=== PATIENT | female | born 1980 | race Two or more races ===

== ENCOUNTER 2016-11-28 10:07 | Emergency (ER) | payer MEDICAID ==
[~2016-11-28] VITALS: Ht 167.6 cm; Wt 74.8 kg
[2016-11-28 10:17] VITALS: BP 144/71
[2016-11-28 10:40] LABS: Urine Bilirubin Negative (Negative); Urine Blood Negative /uL (Negative); Urine Color Yellow (Yellow); Urine Glucose Normal (Normal); Urine Ketone Negative (Negative); Urine Mucus FEW (None Seen); Urine Nitrite Negative (Negative); Urine RBC 1 /hpf (0 - 4); Urine Squamous Epithelial Cell MOD /hpf (<5); Urine Urobilinogen >12.0 mg/dL (Negative); Urine pH 6.5 (5.0-8.0)
== END 2016-11-28 12:28 | disposition home or self-care (01) ==
LOC: ER 10:07
DX: B86 Scabies (principal); N39.0 Urinary tract infection, site not specified
CPT/HCPCS: 80307; 81001

== ENCOUNTER 2017-01-05 10:03 | Emergency (ER) | payer MEDICAID ==
[~2017-01-05] VITALS: Ht 167.6 cm; Wt 63.5 kg
[2017-01-05 10:21] VITALS: BP 129/76
== END 2017-01-05 14:05 | disposition left against medical advice (07) ==
LOC: ER 10:03
DX: L25.9 Unspecified contact dermatitis, unspecified cause (principal); L50.9 Urticaria, unspecified

== ENCOUNTER 2017-03-24 13:15 | Emergency (ER) | payer MEDICAID ==
[~2017-03-24] VITALS: Ht 167.6 cm; Wt 59.0 kg
[2017-03-24 16:18] VITALS: BP 126/90
[2017-03-24 17:03] LABS: Urine Bilirubin Negative (Negative); Urine Blood Negative /uL (Negative); Urine Color Yellow (Yellow); Urine Glucose Normal (Normal); Urine Ketone 1+ (Negative); Urine Mucus FEW (None Seen); Urine Nitrite Negative (Negative); Urine RBC 1 /hpf (0 - 4); Urine Squamous Epithelial Cell FEW /hpf (<5); Urine Urobilinogen Normal (Negative); Urine pH 6.5 (5.0-8.0)
== END 2017-03-24 17:45 | disposition home or self-care (01) ==
LOC: ER 13:15 → EDSEX 13:15 → EDBD 13:15 → ER 17:44
DX: B75 Trichinellosis (principal)
CPT/HCPCS: 80307; 81001

== ENCOUNTER 2017-08-07 13:00 | Emergency (ER) | payer MEDICAID ==
[~2017-08-07] VITALS: Ht 167.6 cm; Wt 47.6 kg
[2017-08-07 13:12] VITALS: BP 135/86
[2017-08-07] MEDS ORDERED: SODIUM CHLORIDE 0.9% 500 ML IVB ONE (13:18)
[2017-08-07 13:50] LABS: Basophils # (auto) 0.1 uL; Basophils % (auto) 0.7 % (0.0-2.0); Eosinophils # (auto) 0 uL; Eosinophils % (auto) 0.3 % (0.0-7.0); Hematocrit 40.5 % (36.0-46.0); Hemoglobin 13.2 g/dL (12.2-16.2); Lymphocytes # (auto) 1.9 uL; Lymphocytes % (auto) 23.8 % (10.0-50.0); Mean Corpuscular Hemoglobin 28.8 pg (28.0-32.0); Mean Corpuscular Hgb Conc. 32.7 g/dL (32.0-36.0); Mean Corpuscular Volume 88.1 fL (80.0-100.0); Monocytes # (auto) 0.5 uL; Neutrophils # (auto) 5.6 uL; Neutrophils % (auto) 69.2 % (37.0-80.0); Nucleated Red Blood Cells % 0.1 %; Platelet Count (auto) 245 10^3/uL (140-450); Red Cell Distribution Width 13.7 % (11.8-14.3)
[2017-08-07 14:12] LABS: Alanine Aminotransferase 18 U/L (13-56); Anion Gap 10 (5-15); Aspartate Aminotransferase 13 U/L (15-37); Blood Urea Nitrogen 8 mg/dL (7-18); Calcium 8.8 mg/dL (8.5-10.1); Carbon Dioxide 22 mmol/L (21-32); Chloride 110 mmol/L (98-107); GFR African American 179 mL/min; GFR Non-African American 148 mL/min; Glucose 69 mg/dL (74-106); Magnesium 2.1 mg/dL (1.6-2.6); Potassium 3.4 mmol/L (3.5-5.1); Sodium 142 mmol/L (136-145)
[2017-08-07 14:19] LABS: Alkaline Phosphatase 96 U/L (45-117); Bilirubin, Total 0.3 mg/dL (0.2-1.0)
== END 2017-08-07 14:30 | disposition left against medical advice (07) ==
LOC: ER 13:00 → EDBD 13:00 → ER 14:30
DX: R53.1 Weakness (principal); R07.9 Chest pain, unspecified; R06.02 Shortness of breath; R20.0 Anesthesia of skin
CPT/HCPCS: 36415; 70450; 71045; 80053; 83605; 83735; 84484; 85025; 87040; 93005; 94761